=== PATIENT | female | born 1940 | race African-American/Black ===

== ENCOUNTER 2016-04-23 14:25 | Outpatient (CLI) | payer MEDICARE, OTHER ==
[2016-04-23 14:55] LABS: #Basophils 0.1 thou/uL (0.0-0.2); #Lymphocytes 1.5 thou/uL (1.20-3.40); #Monocytes 0.5 thou/uL (0.11-0.59); #Neutrophils 4.8 thou/uL (1.40-6.50); %Eosinophils 0.7 % (0.0-10.0); %Lymphocytes 21.8 % (21.0-51.0); %Monocytes 6.5 % (0.0-10.0); %Neutrophils 70.1 % (42.0-75.0); Hemoglobin 11.8 g/dL (12.0-16.0); Mean Corpuscular HGB CONC 32.2 g/dL (32.0-36.0); Mean Corpuscular Volume 89.9 fl (81.0-99.0); Mean Platelet Volume 6.6 fL (7.4-10.4); Platelet Count 230 thou/uL (130-400); RBC Distribution Width 12.1 % (11.5-14.5); Red Blood Cell (RBC) Count 4.07 mill/uL (4.20-5.40); White Blood Cell (WBC) Count 6.9 thou/uL (4.8-10.8)
[2016-04-23 15:17] LABS: ALT (SGPT) 16 U/L (0-55); AST (SGOT) 17 U/L (5-34); Albumin 4.2 g/dL (3.4-4.8); Alkaline Phosphatase 141 U/L (40-150); Anion Gap 16 mmol/L (10-20); BUN (Urea Nitrogen) 8 mg/dL (9.8-20.1); Bilirubin, Total 0.3 mg/dL (0.2-1.2); Calc. Creatinine Clearance 0 mL/min (70-130); Calcium 9.5 mg/dL (7.8-10.44); Carbon Dioxide 27 mmol/L (23-31); Chloride 99 mmol/L (98-107); Estimated GFR-MDRD 82; Globulin 2.8 g/dL (2.4-3.5); Glucose 104 mg/dL (83-110); Potassium 3.5 mmol/L (3.5-5.1); Sodium 138 mmol/L (136-145)
[2016-04-24 17:30] LABS: Carbamazepine-Tegretol 5.7 ug/mL (4.0-12.0)
== END 2016-04-23 14:26 | disposition home or self-care (01) ==
LOC: MADLABBHPM 14:25
PROVIDERS: ATTEND Family Medicine
DX: I67.1 Cerebral aneurysm, nonruptured (principal); I10 Essential (primary) hypertension
CPT/HCPCS: 36415; 80053; 80156; 85025

== ENCOUNTER 2016-09-13 11:44 | Emergency (ER) | payer MEDICARE ==
[2016-09-13 12:55] LABS: Bacteria/HPF None Seen HPF (None Seen); Bilirubin Negative (Negative); Blood, Urine Negative (Negative); Clarity Clear (Clear); Glucose, Urine (Dipstick) Negative (Negative); Leukocyte Negative (Negative); Nitrite Negative (Negative); Protein, Urine (Dipstick) Negative (Neg-Trace); RBC/HPF None Seen HPF (0-3); Specific Gravity, Urine 1.015 (1.005-1.030); Squamous Epithelial 0-3 HPF (0-3); WBC/HPF 0-3 HPF (0-3); pH, Urine 6.5 (5.0-9.0)
[2016-09-13] MEDS ORDERED: Iopamidol 370 76% 100 ML VIAL ONE (13:00)
[2016-09-13 13:15] LABS: Band 1 % (5-11); Eosinophils 1 % (0-10); Hemoglobin 10.9 g/dL (12.0-16.0); Lymphocytes 31 % (21-51); MDiff Complete? YES; Mean Corpuscular HGB CONC 30.5 g/dL (32.0-36.0); Mean Corpuscular Hemoglobin 28.4 pg (27.0-31.0); Mean Corpuscular Volume 93.4 fl (81.0-99.0); Mean Platelet Volume 7.9 fL (7.4-10.4); Monocytes 2 % (0-10); Neutrophil 65 % (42-75); Platelet Count 232 thou/uL (130-400); RBC Distribution Width 13.1 % (11.5-14.5); Red Blood Cell (RBC) Count 3.83 mill/uL (4.20-5.40); White Blood Cell (WBC) Count 5.9 thou/uL (4.8-10.8)
[2016-09-13 13:29] LABS: ALT (SGPT) 14 U/L (8-55); AST (SGOT) 19 U/L (5-34); Albumin 3.9 g/dL (3.4-4.8); Alkaline Phosphatase 120 U/L (40-150); Anion Gap 18 mmol/L (10-20); BUN (Urea Nitrogen) 15 mg/dL (9.8-20.1); Bilirubin, Total 0.5 mg/dL (0.2-1.2); CRP (Inflammatory) 1.58 mg/dL (= or < 0.5); Calc. Creatinine Clearance 0 mL/min (70-130); Calcium 9.3 mg/dL (7.8-10.44); Carbon Dioxide 24 mmol/L (23-31); Chloride 105 mmol/L (98-107); Estimated GFR-MDRD 60; Globulin 3.2 g/dL (2.4-3.5); Glucose 105 mg/dL (83-110); Lipase 23 U/L (8-78); Potassium 3.6 mmol/L (3.5-5.1); Protein, Total 7.1 g/dL (6.0-8.3); Sodium 143 mmol/L (136-145)
--- NOTE | 2016-09-13 15:11 | RAD ---
PORTABLE CHEST: History: Abdominal pain. FINDINGS: Heart size is within normal limits. There are atherosclerotic changes of the aorta. Lungs are clear of infiltrates. IMPRESSION: Atherosclerosis of the aorta. No active intrathoracic disease. POS: [facility]
--- NOTE | 2016-09-13 15:48 | CT ---
CT ABDOMEN AND PELVIS WITH CONTRAST: Multiple axial tomograms are obtained through the abdomen and pelvis with IV enhancement. HISTORY: Right lower quadrant pain. Lung bases are clear. Liver, spleen, and pancreas appear unremarkable. The gallbladder is mildly distended. No definite pericholecystitis inflammation is seen; however, r ecommend further evaluation with gallbladder ultrasound. Cholesterol gallstones may not be apparent on CT. Adrenal glands unremarkable. Kidneys unremarkable. No hydronephrosis. Tiny cyst inferior pole right kidney. Small bowel loops appear normal. Appendix is not identified; however, there is no evidence of appen dicitis. There is prominent stool seen in the right colon, transverse colon, and upper left colon. There is an area of questionable luminal narrowing in the distal left colon/upper sigmoid region. Suggest elective colonoscopy. Uterus is heterogeneous. There are myometrial calcifications. Findings probably represent a fibroi d uterus. Urinary bladder is unremarkable. Aorta is normal caliber. No adenopathy seen. IMPRESSION: 1. The gallbladder is mildly distended. Recommend correlation with gallbladder ultrasound. 2. Question luminal narrowing in the upper sigmoid lower descending colon region. Suggest elective colonoscopy. 3. Otherwise, no evidence of acute intraabdominal process. POS: [facility]
== END 2016-09-13 15:35 | disposition home or self-care (01) ==
LOC: MADERS 11:44
DX: K56.69 Other intestinal obstruction (principal); E78.5 Hyperlipidemia, unspecified; I10 Essential (primary) hypertension; I72.9 Aneurysm of unspecified site; Z79.899 Other long term (current) drug therapy
CPT/HCPCS: 36415; 71010; 74177; 80053; 81001; 82150; 83690; 85025; 86140; 87086; A4216

== ENCOUNTER 2016-12-28 11:49 | Emergency (ER) | payer MEDICARE, OTHER | END 2016-12-28 12:34 | disposition home or self-care (01) | LOC: MADERS 11:49 | DX: S05.12XA Contusion of eyeball and orbital tissues, left eye, initial encounter (principal); F03.90 Unspecified dementia, unspecified severity, without behavioral disturbance, psychotic disturbance, mood disturbance, and anxiety; E78.5 Hyperlipidemia, unspecified; I10 Essential (primary) hypertension; I72.9 Aneurysm of unspecified site; Z79.899 Other long term (current) drug therapy; W19.XXXA Unspecified fall, initial encounter | CPT/HCPCS: 99283 ==

== ENCOUNTER 2018-11-24 07:22 | Emergency (ER) | payer MEDICARE, OTHER ==
--- NOTE | 2018-11-24 08:33 | RAD ---
XR Hip Lt 2-3 View History: Pain. No trauma Comparison: None. Findings: Small acetabular osteophyte formation. No acute fracture or malalignment. Moderate enthesop athic change of the gluteus medius tendon upon the greater trochanter. Moderate degenerative disease of the lower lumbar spine and left SI joint as well as narrowing of the pubic symphysis. Impression: Mild degenerative changes and enthesopathy. No acute osseous abnormality.
--- NOTE | 2018-11-24 08:45 | RAD ---
EXAM: Left femur: 4 views INDICATIONS: Left lower extremity pain COMPARISON: None. FINDINGS: Mild to moderate degenerative change at the left hip with spurring from the femoral head an d acetabulum. Mild degenerative change at the knee. No fracture or acute osseous abnormality. IMPRESSION: Degenerative changes at hip and knee. No acute finding.
== END 2018-11-24 09:10 | disposition home or self-care (01) ==
LOC: MADERS 07:22
DX: M16.12 Unilateral primary osteoarthritis, left hip (principal); E78.5 Hyperlipidemia, unspecified; I10 Essential (primary) hypertension; F03.90 Unspecified dementia, unspecified severity, without behavioral disturbance, psychotic disturbance, mood disturbance, and anxiety; Z79.899 Other long term (current) drug therapy

== ENCOUNTER 2020-05-18 15:12 | Outpatient (CLI) | payer MEDICARE, OTHER ==
[2020-05-18 15:52] LABS: Bilirubin Negative (Negative); Blood, Urine Negative (Negative); Clarity Clear (Clear); Glucose, Urine (Dipstick) Negative (Negative); Ketone, Urine Negative (Negative); Leukocyte Trace (Negative); Nitrite Negative (Negative); Protein, Urine (Dipstick) Negative (Neg-Trace); pH, Urine 5.5 (5.0-9.0)
[2020-05-18 17:32] LABS: RBC/HPF 0-3 HPF (0-3)
[2020-05-18 17:33] LABS: Bacteria/HPF Rare-Few HPF (None Seen)
[2020-05-18 22:19] LABS: Syphilis Antibody Nonreactive (Nonreactive); Syphilis Antibody Index 0.02 S/CO (<1.00 Non-Reactive)
[2020-05-18 23:32] LABS: HBSAg Index 0.22 S/CO (0-0.99); Hep B Surf Ag Non-Reactive S/CO (NonReactive); Hep C IgG Ab Non-Reactive (NonReactive); Hep C Index 0.08 S/CO (0-0.79)
[2020-05-18 23:33] LABS: Hep A IgM AB Non-Reactive (NonReactive); Hep A IgM S/CO 0.25 S/CO (0-0.79)
[2020-05-18 23:34] LABS: HBCM Index 0.08 S/CO (0-0.79); HIV (1/2) Antibody/Antigen Non-Reactive (NonReactive); HIV 1/2 INDEX 0.07 S/CO (<1.00); Hepatitis B Core IgM Abs Non-Reactive (NonReactive)
[2020-05-21 14:35] LABS: Chlam.trachomatis by PCR,Urine Not Detected (NotDetected)
== END 2020-05-18 15:13 | disposition home or self-care (01) ==
LOC: MADLABSP 15:12
PROVIDERS: ATTEND Family Medicine
DX: A74.9 Chlamydial infection, unspecified (principal); A54.9 Gonococcal infection, unspecified; R82.90 Unspecified abnormal findings in urine; R76.8 Other specified abnormal immunological findings in serum; K76.4 Peliosis hepatis
CPT/HCPCS: 80074; 81001; 86780; 87389; 87491; 87591

== ENCOUNTER 2020-05-25 18:06 | Emergency (ER) | payer MEDICARE, OTHER ==
[2020-05-25 18:52] LABS: ALT (SGPT) 12 U/L (8-55); AST (SGOT) 20 U/L (5-34); Albumin 3.7 g/dL (3.4-4.8); Alkaline Phosphatase 115 U/L (40-110); Anion Gap 20 mmol/L (10-20); BUN (Urea Nitrogen) 26 mg/dL (9.8-20.1); Bilirubin, Total 0.5 mg/dL (0.2-1.2); Calc. Creatinine Clearance 0 mL/min (70-130); Calcium 8.9 mg/dL (7.8-10.44); Carbon Dioxide 24 mmol/L (23-31); Chloride 100 mmol/L (98-107); Globulin 2.9 g/dL (2.4-3.5); Glucose 138 mg/dL (83-110); Lipase 23 U/L (8-78); Potassium 3.4 mmol/L (3.5-5.1); Protein, Total 6.6 g/dL (5.8-8.1); Sodium 141 mmol/L (136-145)
[2020-05-25 18:53] LABS: Band 11 % (5-11); Hemoglobin 11.9 g/dL (12.0-16.0); Lymphocytes 2 % (21-51); MDiff Complete? YES; Mean Corpuscular HGB CONC 31.5 g/dL (32.0-36.0); Mean Corpuscular Hemoglobin 28.8 pg (27.0-31.0); Mean Corpuscular Volume 91.3 fL (78.0-98.0); Mean Platelet Volume 7.2 fL (7.4-10.4); Monocytes 2 % (0-10); Neutrophil 82 % (42-75); Platelet Count 239 thou/uL (130-400); Platelet Morphology Comment Appears Adequate; RBC Distribution Width 13.4 % (11.5-14.5); Reactive Lymphocytes 3 % (0-10); Red Blood Cell (RBC) Count 4.15 mill/uL (4.20-5.40); White Blood Cell (WBC) Count 20.3 thou/uL (4.8-10.8)
[2020-05-25] MEDS ORDERED: Acetaminophen 325 MG TAB ONE (19:03)
[2020-05-25] MEDS ORDERED: Acetaminophen 650 MG Suppository ONE (19:07)
[2020-05-25] MEDS ORDERED: Sodium Chloride 0.9% 500 ML ONE (19:08)
[2020-05-25 19:36] LABS: Bilirubin Negative (Negative); Blood, Urine Negative (Negative); Clarity Hazy (Clear); Glucose, Urine (Dipstick) Negative (Negative); Ketone, Urine Negative (Negative); Leukocyte Small (Negative); Nitrite Negative (Negative); Protein, Urine (Dipstick) Trace mg/dL (Neg-Trace); Specific Gravity, Urine 1.015 (1.005-1.030); pH, Urine 6.5 (5.0-9.0)
[2020-05-25 19:38] LABS: RBC/HPF None Seen HPF (0-3)
[2020-05-25 19:39] LABS: Bacteria/HPF Rare-Few HPF (None Seen); Mucous/LPF 1+ LPF (<2+); WBC/HPF 0-3 HPF (0-3)
[2020-05-25] MEDS ORDERED: Aspirin 300 MG Suppository ONE (20:06)
[2020-05-25 20:29] LABS: CKMB 0.7 ng/mL (0-6.6)
[2020-05-25] MEDS ORDERED: Enoxaparin Sodium 80 MG/0.8 ML SYRINGE ONE (20:54)
[2020-05-25] MEDS ORDERED: Sodium Chloride 0.9% 1,000 ML ONE (22:42)
[2020-05-25 23:00] LABS: SARS-CoV-2 NAA Rapid Test Not Detected (NotDetected)
[2020-05-25] MEDS ORDERED: Cefepime 2 GM VIAL ONE (23:30)
[2020-05-25] MEDS ORDERED: Sodium Chloride 0.9% 100 ML ONE (23:31)
== END 2020-05-26 00:10 | disposition short-term general hospital (02) ==
LOC: MADERS 18:06
DX: N17.9 Acute kidney failure, unspecified (principal); I21.4 Non-ST elevation (NSTEMI) myocardial infarction; E78.5 Hyperlipidemia, unspecified; I10 Essential (primary) hypertension; I72.9 Aneurysm of unspecified site; Z79.899 Other long term (current) drug therapy
CPT/HCPCS: 0240U; 71045; 74176; 80053; 82553; 83605; 83690; 83880; 84484; 85025; 87040; 36415; 51701; 81003; 81015; 96365; 96372; J0692; J1650; J3490; J7030; J7050